=== PATIENT | female | born 1990 | race Caucasian/White ===

== ENCOUNTER 2017-11-18 23:35 | Observation (INO) | payer OTHER ==
[~2017-11-18] VITALS: Ht 167.6 cm; Wt 65.0 kg
[2017-11-18 23:51] VITALS: BP 137/79; PULSE 62; RESP 16; TEMP 97.6; O2SAT 100
[2017-11-19] VITALS (8 sets, daily range): BP systolic 101–115; BP diastolic 56–68; PULSE 48–71; RESP 14–18; TEMP 96.8–98.8; O2SAT 96–99
[2017-11-19] MEDS ORDERED: ONDANSETRON HCL 4 MG/2 ML VIAL IVP ONE (00:45)
[2017-11-19] MEDS ORDERED: MORPHINE SULFATE 8 MG/ML INJ IV PUSH ONE (00:45)
[2017-11-19] MEDS ORDERED: SODIUM CHLORIDE 0.9% FLUSH 10 ML FLUSH IV FLUSH PRN ×2 (00:45→04:30)
[2017-11-19 01:17] LABS: AUTOMATED NEUTROPHIL # 6.6 TH/MM3 (1.8-7.7); BASOPHIL % 0.4 % (0.0-2.0); EOSINOPHIL # 0.1 TH/MM3 (0-0.4); EOSINOPHIL % 0.9 % (0.0-4.0); HEMATOCRIT 41.3 % (35.0-46.0); HEMOGLOBIN 13.7 GM/DL (11.6-15.3); LYMPH % 19.1 % (9.0-44.0); LYMPHOCYTE # 1.7 TH/MM3 (1.0-4.8); MEAN CELL VOLUME 89.5 FL (80.0-100.0); MEAN CORPUSCULAR HEMOGLOBIN 29.7 PG (27.0-34.0); MEAN CORPUSCULAR HGB CONC 33.2 % (32.0-36.0); MEAN PLATELET VOLUME 8.7 FL (7.0-11.0); MONO % 5.5 % (0.0-8.0); MONOCYTE # 0.5 TH/MM3 (0-0.9); NEUT % 74.1 % (16.0-70.0); PLATELET COUNT 314 TH/MM3 (150-450); RED BLOOD COUNT 4.61 MIL/MM3 (4.00-5.30); RED CELL DISTRIBUTION WIDTH 13.7 % (11.6-17.2); WHITE BLOOD COUNT 8.9 TH/MM3 (4.0-11.0)
[2017-11-19 01:37] LABS: ALKALINE PHOSPHATASE 115 U/L (45-117); TOTAL BILIRUBIN ADULT 0.3 MG/DL (0.2-1.0); TOTAL PROTEIN 9.5 GM/DL (6.4-8.2)
[2017-11-19 01:39] LABS: ALBUMIN 3.6 GM/DL (3.4-5.0); ALT (GPT) 34 U/L (10-53); AST (GOT) 44 U/L (15-37); BICARBONATE 17.7 MEQ/L (21.0-32.0); BLOOD UREA NITROGEN 20 MG/DL (7-18); CALCIUM 8.4 MG/DL (8.5-10.1); CHLORIDE 118 MEQ/L (98-107); CREATININE 1.49 MG/DL (0.50-1.00); GLOMERULAR FILTRATION RATE 42 ML/MIN (>89); GLUCOSE,RANDOM 85 MG/DL (74-106); SODIUM (NA) 140 MEQ/L (136-145)
--- NOTE | 2017-11-19 01:53 | RADRPT ---
EXAM DATE/TIME: 11/19/2017 01:07 [facility] COMPARISON: No previous studies available for comparison. INDICATIONS : Bilateral edema. MEDICAL HISTORY : Bilateral pedal edema. SURGICAL HISTORY : None. ENCOUNTER: Initial ACUITY: 1 day PAIN SCORE: 2/10 LOCATION: Bilateral legs. TECHNIQUE: Venous ultrasound of the left and right leg was performed from the inguinal ligament to the proximal calf. Real-time, color Doppler and spectral tracing, compression and augmentation techniques were us ed. FINDINGS: RIGHT LEG: There is normal compressibility of the deep venous system from the inguinal region to the proximal ca lf. No echogenic clot is seen in the lumen of the common femoral, femoral, popliteal, and posterior tibial veins. There is a normal response of the venous system to proximal and distal augmentation an d respiration. LEFT LEG: There is normal compressibility of the deep venous system from the inguinal region to the proximal ca lf. No echogenic clot is seen in the lumen of the common femoral, femoral, popliteal, and posterior tibial veins. There is a normal response of the venous system to proximal and distal augmentation an d respiration. CONCLUSION: 1. No evidence of deep venous thrombosis. Momo Solis MD on November 19, 2017 at 1:51 Board Certified Radiologist. This report was verified electronically.
[2017-11-19 02:29] LABS: PROTHROMBIN TIME - PATIENT 10.2 SEC (9.8-11.6)
--- NOTE | 2017-11-19 03:13 | PD ---
HPI Chief Complaint: Edema Time Seen by Provider: 00:36 Travel History International Travel<30 days: No Contact w/Intl Traveler<30days: No Traveled to known affect area: No History of Present Illness HPI 27-year-old female arrives to the ER with complaints of sudden onset swelling in the bilateral lower extremities associated with rash. Duration is been about an hour and a half. Associated symptoms include back pain. She reports a history of kidney disease however is unsure of the specific diagnosis however believes it is related to hypokalemia. She has also had chronic kidney stones. No fever nausea or vomiting. No new or different medication lately. The patient is visiting from [place]. [facility] Past Medical History Medical History: Denies Significant Hx Diminished Hearing: No ?: Not LMP: 11/15/17 Past Surgical History Surgical History: No Previous Surgery Social History Alcohol Use: No Tobacco Use: No Substance Use: No Allergies-Medications (Allergen,Severity, Reaction): Coded Allergies: No Known Allergies (Unverified , 11/18/17) Review of Systems Except as stated in HPI: all other systems reviewed are Neg General / Constitutional: No: Fever, Chills Physical Exam Narrative GENERAL: 27-year-old female pleasant well-nourished well-developed Vital Signs Date Time Temp Pulse Resp B/P (MAP) Pulse Ox O2 Delivery O2 Flow Rate FiO2 11/18/17 23:51 97.6 62 16 137/79 (98) 100 SKIN: Warm and dry. HEAD: Atraumatic. Normocephalic. EYES: Pupils equal and round. No scleral icterus. No injection or drainage. ENT: No nasal bleeding or discharge. Mucous membranes pink and moist. NECK: Trachea midline. No JVD. CARDIOVASCULAR: Regular rate and rhythm. RESPIRATORY: No accessory muscle use. Clear to auscultation. Breath sounds equal bilaterally. GASTROINTESTINAL: Abdomen soft, non-tender, nondistended. Hepatic and splenic margins not palpable. MUSCULOSKELETAL: Blanching erythematous lesions about the bilateral lower extremities from the mid tib-fib distally with edema in the same distribution. 2+ dorsalis pedis bilaterally. NEUROLOGICAL: Awake and alert. No obvious cranial nerve deficits. Motor grossly within normal limits. Five out of 5 muscle strength in the arms and legs. Normal speech. PSYCHIATRIC: Appropriate mood and affect; insight and judgment normal. Data Data Last Documented VS Vital Signs Date Time Temp Pulse Resp B/P (MAP) Pulse Ox O2 Delivery O2 Flow Rate FiO2 11/18/17 23:51 97.6 62 16 137/79 (98) 100 Orders Orders Complete Blood Count With Diff (11/19/17 00:39) Comprehensive Metabolic Panel (11/19/17 00:39) Lactic Acid (11/19/17 00:39) Prothrombin Time / Inr (Pt) (11/19/17 00:39) Act Partial Throm Time (Ptt) (11/19/17 00:39) Urinalysis - C+S If Indicated (11/19/17 00:39) Iv Access Insert/Monitor (11/19/17 00:39) Ecg Monitoring (11/19/17 00:39) Oximetry (11/19/17 00:39) Ondansetron Inj (Zofran Inj) (11/19/17 00:45) Sodium Chloride 0.9% Flush (Ns Flush) (11/19/17 00:45) Morphine Inj (Morphine Inj) (11/19/17 00:45) Ed Urine Pregnancytest Poc (11/19/17 00:39) Us Leg Venous Doppler Bilat (11/19/17 ) Morphine Inj (Morphine Inj) (11/19/17 03:15) Ketorolac Inj (Toradol Inj) (11/19/17 03:15) Urine Culture (11/19/17 02:55) Ceftriaxone Inj (Rocephin Inj) (11/19/17 03:30) Admit Order (Ed Use Only) (11/19/17 ) Tanker Service Attendant / Telemetry JORGE L.Q8H (11/19/17 04:16) Diet Heart Healthy (11/19/17 Breakfast) Activity Oob With Assistance (11/19/17 04:16) Notify Dr: Other (11/19/17 04:16) Labs Laboratory Tests Test 11/19/17 01:00 11/19/17 01:45 11/19/17 02:55 White Blood Count 8.9 TH/MM3 Red Blood Count 4.61 MIL/MM3 Hemoglobin 13.7 GM/DL Hematocrit 41.3 % Mean Corpuscular Volume 89.5 FL Mean Corpuscular Hemoglobin 29.7 PG Mean Corpuscular Hemoglobin Concent 33.2 % Red Cell Distribution Width 13.7 % Platelet Count 314 TH/MM3 Mean Platelet Volume 8.7 FL Neutrophils (%) (Auto) 74.1 % Lymphocytes (%) (Auto) 19.1 % Monocytes (%) (Auto) 5.5 % Eosinophils (%) (Auto) 0.9 % Basophils (%) (Auto) 0.4 % Neutrophils # (Auto) 6.6 TH/MM3 Lymphocytes # (Auto) 1.7 TH/MM3 Monocytes # (Auto) 0.5 TH/MM3 Eosinophils # (Auto) 0.1 TH/MM3 Basophils # (Auto) 0.0 TH/MM3 CBC Comment DIFF FINAL Differential Comment Blood Urea Nitrogen 20 MG/DL Creatinine 1.49 MG/DL Random Glucose 85 MG/DL Total Protein 9.5 GM/DL Albumin 3.6 GM/DL Calcium Level 8.4 MG/DL Alkaline Phosphatase 115 U/L Aspartate Amino Transf (AST/SGOT) 44 U/L Alanine Aminotransferase (ALT/SGPT) 34 U/L Total Bilirubin 0.3 MG/DL Sodium Level 140 MEQ/L Potassium Level 4.2 MEQ/L Chloride Level 118 MEQ/L Carbon Dioxide Level 17.7 MEQ/L Anion Gap 4 MEQ/L Estimat Glomerular Filtration Rate 42 ML/MIN Lactic Acid Level 0.6 mmol/L Prothrombin Time 10.2 SEC Prothromb Time International Ratio 1.0 RATIO Activated Partial Thromboplast Time 24.5 SEC Urine Color LIGHT-YELLOW Urine Turbidity HAZY Urine pH 7.0 Urine Specific [place] 1.007 Urine Protein TRACE mg/dL Urine Glucose (UA) NEG mg/dL Urine Ketones NEG mg/dL Urine Occult Blood MOD Urine Nitrite NEG Urine Bilirubin NEG Urine Urobilinogen LESS THAN 2.0 MG/DL Urine Leukocyte Esterase LARGE Urine RBC 4 /hpf Urine WBC 32 /hpf Urine Squamous Epithelial Cells 7 /hpf Urine Bacteria MOD /hpf Urine Mucus FEW /lpf Microscopic Urinalysis Comment CULTURE INDICATED MDM Medical Decision Making Medical Screen Exam Complete: Yes Emergency Medical Condition: Yes Medical Record Reviewed: Yes Differential Diagnosis Hemolytic anemia, renal failure, DVT, infection Narrative Course CBC & BMP Diagram 11/19/17 01:00 Total Protein 9.5 H, Albumin 3.6, Calcium Level 8.4 L, Alkaline Phosphatase 115 , Aspartate Amino Transf (AST/SGOT) 44 H, Alanine Aminotransferase (ALT/SGPT) 34 , Total Bilirubin 0.3 LE Doppler: no DVT Last Impressions Lower Extremity Ultrasound 11/19/17 0000 Signed Impressions: Service Date/Time: Sunday, November 19, 2017 01:07 - CONCLUSION: 1. No evidence of deep venous thrombosis. Momo Solis MD Urinalysis shows UTI Antibiotics started, Rocephin. Patient will be admitted. There appears to be some increased erythema/petechia involving bilateral lower extremities since the patient's arrival. It is not blanching. d/w Dr king Diagnosis Primary Impression: Petechiae Additional Impressions: UTI (urinary tract infection) Qualified Codes: N39.0 - Urinary tract infection, site not specified Chronic renal insufficiency Qualified Codes: N18.9 - Chronic kidney disease, unspecified Edema Qualified Codes: R60.9 - Edema, unspecified Admitting Information Admitting Physician Requests: Admit Disposition: 01 DISCHARGE HOME Condition: Stable Sohan Geller MD Nov 19, 2017 03:13
[2017-11-19 03:15] LABS: BACTERIA, URINE MOD /hpf; BILIRUBIN, URINE NEG (NEG); BLOOD, URINE MOD (NEG); GLUCOSE,URINE NEG (NEG); KETONE, URINE NEG (NEG); MUCUS URINE FEW /lpf (OCC); NITRITE,URINE NEG (NEG); SQUAMOUS EPITHELIAL CELL URINE 7 /hpf (0-5); URINE COLOR LIGHT-YELLOW (YELLW/STRAW); URINE LEUKOCYTE ESTERASE LARGE (NEG)
[2017-11-19] MEDS ORDERED: MORPHINE SULFATE 4 MG/ML INJ IV PUSH ONE (03:15)
[2017-11-19] MEDS ORDERED: KETOROLAC TROMETHAMINE 30 MG/ML (IVP) VIAL IV PUSH ONE (03:15)
[2017-11-19] MEDS ORDERED: cefTRIAXone INJ 1,000 MG in SODIUM CHLORIDE 0.9% INJ 100 ML IV ONE (03:30)
[2017-11-19] MEDS ORDERED: BISACODYL 10 MG SUPP RECTAL PRN (04:30)
[2017-11-19] MEDS ORDERED: ACETAMINOPHEN/HYDROcodone 325 MG/5 MG TAB PO PRN (04:30)
[2017-11-19] MEDS ORDERED: LACTULOSE SYRUP 20 GM/30 ML CUP PO PRN (04:30)
[2017-11-19] MEDS ORDERED: ACETAMINOPHEN/HYDROcodone 325 MG/10 MG TAB PO PRN (04:30)
[2017-11-19] MEDS ORDERED: ACETAMINOPHEN 325 MG TAB PO PRN (04:30)
[2017-11-19] MEDS ORDERED: SENNOSIDES 8.6 MG TAB PO PRN (04:30)
[2017-11-19] MEDS ORDERED: ONDANSETRON HCL 4 MG/2 ML VIAL IVP PRN (04:30)
[2017-11-19] MEDS ORDERED: MAGNESIUM HYDROXIDE SUSP 30 ML CUP PO PRN (04:30)
--- NOTE | 2017-11-19 04:43 | HHI.HP ---
[facility] Primary Care Physician Admission Diagnosis Petechia, edema, chronic renal insufficiency, UTI Diagnoses: (1) Intractable pain Diagnosis: Principal (2) Edema Diagnosis: Principal (3) UTI (urinary tract infection) Diagnosis: Principal Travel History International Travel<30 Days: No Contact w/Intl Traveler <30 Da: No Traveled to Known Affected Are: No History of Present Illness This is a 27-year-old female with a PMH of Kidney Stones who presented to the ER w/ complaints of bilateral lower extremity swelling and rash starting earlier today. States she drove from [place] w/ family, they had stopped at a gas station on the way and she noticed pain/swelling to bilateral lower extremities. No previous h/o similar symptoms. Does state she follows w/ a [facility] in [place] for "kidney problems" which she thinks involves low potassium, but is not sure, does not know her diagnosis. Does tell me she is on K+ and Sodium Bicarb in addition to another medication, but cannot recall which one. Does not know baseline creatinine. Denies fever, chills, chest pain or SOB. Does note severe right sided back pain earlier today, now resolved. On arrival, BP 137/79, HR 62, O2 sat 100% RA, Afebrile. CBC unremarkable. BUN 20, creatinine 1.49, no previous labs for comparison. Chloride 118, CO2 17.7. Lactic Acid normal. Total protein 9.5, Albumin 3.6. UA positive UTI. LE Doppler with no evidence of DVT. S/p Rocephin IV in ER. Review of Systems Except as stated in HPI: all other systems reviewed are Neg ROS: 14 point review of systems otherwise negative. Past Family Social History Past Medical History PMH: Renal Stones, Chronic Kidney Disease (unknown which type) Past Surgical History PAST SURGICAL HISTORY: None Allergies: Coded Allergies: No Known Allergies (Unverified , 11/18/17) Family History PAST FAMILY HISTORY: Reviewed. No h/o DM or CAD Social History PAST SOCIAL HISTORY: Negative for alcohol, tobacco or drugs. Physical Exam Vital Signs Vital Signs Date Time Temp Pulse Resp B/P (MAP) Pulse Ox O2 Delivery O2 Flow Rate FiO2 11/18/17 23:51 97.6 62 16 137/79 (98) 100 Physical Exam PE: GENERAL: Very pleasant young white female in no acute distress. Grandmother and children at bedside. HEENT: PERRLA, EOMI. No scleral icterus or conjunctival pallor. No lid lag or facial droop. CARDIOVASCULAR: Regular rate and rhythm. No obvious murmurs to auscultation. No chest tenderness to palpation. RESPIRATORY: No obvious rhonchi or wheezing. Clear to auscultation. Breath sounds equal bilaterally. GASTROINTESTINAL: Abdomen soft, non-tender, nondistended. BS normal. MUSCULOSKELETAL: Extremities without clubbing. No obvious deformities. Bilateral lower extremity edema 1-2+, +non blanching rash. Pulses intact. NEUROLOGICAL: Awake, alert and oriented x4. No focal neurologic deficits. Moving both upper and lower extremities spontaneously. Laboratory Laboratory Tests Test 11/19/17 01:00 11/19/17 01:45 11/19/17 02:55 White Blood Count 8.9 Red Blood Count 4.61 Hemoglobin 13.7 Hematocrit 41.3 Mean Corpuscular Volume 89.5 Mean Corpuscular Hemoglobin 29.7 Mean Corpuscular Hemoglobin Concent 33.2 Red Cell Distribution Width 13.7 Platelet Count 314 Mean Platelet Volume 8.7 Neutrophils (%) (Auto) 74.1 Lymphocytes (%) (Auto) 19.1 Monocytes (%) (Auto) 5.5 Eosinophils (%) (Auto) 0.9 Basophils (%) (Auto) 0.4 Neutrophils # (Auto) 6.6 Lymphocytes # (Auto) 1.7 Monocytes # (Auto) 0.5 Eosinophils # (Auto) 0.1 Basophils # (Auto) 0.0 CBC Comment DIFF FINAL Differential Comment Blood Urea Nitrogen 20 Creatinine 1.49 Random Glucose 85 Total Protein 9.5 Albumin 3.6 Calcium Level 8.4 Alkaline Phosphatase 115 Aspartate Amino Transf (AST/SGOT) 44 Alanine Aminotransferase (ALT/SGPT) 34 Total Bilirubin 0.3 Sodium Level 140 Potassium Level 4.2 Chloride Level 118 Carbon Dioxide Level 17.7 Anion Gap 4 Estimat Glomerular Filtration Rate 42 Lactic Acid Level 0.6 Prothrombin Time 10.2 Prothromb Time International Ratio 1.0 Activated Partial Thromboplast Time 24.5 Urine Color LIGHT-YELLOW Urine Turbidity HAZY Urine pH 7.0 Urine Specific [place] 1.007 Urine Protein TRACE Urine Glucose (UA) NEG Urine Ketones NEG Urine Occult Blood MOD Urine Nitrite NEG Urine Bilirubin NEG Urine Urobilinogen LESS THAN 2.0 Urine Leukocyte Esterase LARGE Urine RBC 4 Urine WBC 32 Urine Squamous Epithelial Cells 7 Urine Bacteria MOD Urine Mucus FEW Microscopic Urinalysis Comment CULTURE INDICATED Date/Time Source Procedure Growth Status 11/19/17 02:55 Urine Clean Catch Urine Culture Pending Received Result Diagram: 11/19/179911/19/1799 Caprini VTE Risk Assessment Caprini VTE Risk Assessment: No/Low Risk (score <= 1) Caprini Risk Assessment Model Point Value = 1 Point Value = 2 Point Value = 3 Point Value = 5 Age 41-60 Minor surgery BMI > 25 kg/m2 Swollen legs Varicose veins or History of unexplained or recurrent spontaneous Oral contraceptives or hormone replacement Sepsis (< 1 month) Serious lung disease, including pneumonia (< 1 month) Abnormal pulmonary function Acute myocardial infarction Congestive heart failure (< 1 month) History of inflammatory bowel disease Medical patient at bed rest Age 61-74 Arthroscopic surgery Major open surgery (> 45 min) Laparoscopic surgery (> 45 min) Malignancy Confined to bed (> 72 hours) Immobilizing plaster cast Central venous access Age >= 75 History of VTE Family history of VTE Factor V Leiden Prothrombin [id number] Lupus anticoagulant Anticardiolipin antibodies Elevated serum homocysteine Heparin-induced thrombocytopenia Other congenital or acquired thrombophilia Stroke (< 1 month) Elective arthroplasty Hip, pelvis, or leg fracture Acute spinal cord injury (< 1 month) Prophylaxis Regimen Total Risk Factor Score Risk Level Prophylaxis Regimen 0-1 Low Early ambulation 2 Moderate Order ONE of the following: *Sequential Compression Device (SCD) *Heparin 5000 units SQ BID 3-4 Higher Order ONE of the following medications: *Heparin 5000 units SQ TID *Enoxaparin/Lovenox 40 mg SQ daily (WT < 150 kg, CrCl > 30 mL/min) *Enoxaparin/Lovenox 30 mg SQ daily (WT < 150 kg, CrCl > 10-29 mL/min) *Enoxaparin/Lovenox 30 mg SQ BID (WT < 150 kg, CrCl > 30 mL/min) AND/OR *Sequential Compression Device (SCD) 5 or more Highest Order ONE of the following medications: *Heparin 5000 units SQ TID (Preferred with Epidurals) *Enoxaparin/Lovenox 40 mg SQ daily (WT < 150 kg, CrCl > 30 mL/min) *Enoxaparin/Lovenox 30 mg SQ daily (WT < 150 kg, CrCl > 10-29 mL/min) *Enoxaparin/Lovenox 30 mg SQ BID (WT < 150 kg, CrCl > 30 mL/min) AND *Sequential Compression Device (SCD) Assessment and Plan Problem List: (1) Intractable pain ICD Code: R52 - Pain, unspecified (2) Edema ICD Code: R60.9 - Edema, unspecified Status: Acute (3) UTI (urinary tract infection) ICD Code: N39.0 - Urinary tract infection, site not specified Status: Acute Assessment and Plan A/P: 1. Edema: acute onset of bilateral lower extremity edema w/ non-blanching rash , no h/o similar symptoms. Denies recent medications, including Bactrim or any other antibiotics. Doppler LE w/ no acute DVT, images reviewed by me. Rash/ edema possibly related to PATRICE, creatinine elevated at 1.49, however baseline unknown. Does report h/o "kidney problems" but does not know diagnosis. Will check CT Abd/Pelvis to eval for possible stone/hydronephrosis in light of c/o right flank/back pain and UTI. Consult Nephrology for further eval/ recommendations. Monitor I/O. Check ESR/CRP for possible vasculitis. Avoid NSAIDs. No recent fever, chills, no leukocytosis, no headache/neck pain. 2. Intractable Pain: Will continue w/ analgesics/antiemetics as needed. 3. UTI: U/a w/ UTI, s/p Rocephin, follow up urine cultures, continue IV Rocephin. 4. DVT Prophylaxis: Mechanical contraindication secondary to lower extremity edema/rash 5. Social work for d/c planning as needed 6. Case discussed at length w/ ER physician, labs/records/imaging reviewed by me. Problem Qualifiers (1) Edema: Qualified Codes: R60.9 - Edema, unspecified (2) UTI (urinary tract infection): Qualified Codes: N39.0 - Urinary tract infection, site not specified Lisa Pickard MD Nov 19, 2017 04:43
[2017-11-19] MEDS: SODIUM CHLOR 0.9% 1000 ML INJ 1,000 ML IV SCH ×2 (05:11→14:41)
--- NOTE | 2017-11-19 05:24 | RADRPT ---
EXAM DATE/TIME: 11/19/2017 04:39 [facility] COMPARISON: No previous studies available for comparison. INDICATIONS : Abnormal ultrasound; hydronephrosis. ORAL CONTRAST: No oral contrast ingested. RADIATION DOSE: 6.64 CTDIvol (mGy) MEDICAL HISTORY : None SURGICAL HISTORY : None. ENCOUNTER: Initial ACUITY: 1 day PAIN SCALE: 6/10 LOCATION: abdomen TECHNIQUE: Volumetric scanning of the abdomen and pelvis was performed. Using automated exposure control and ad justment of the mA and/or kV according to patient size, radiation dose was kept as low as reasonably achievable to obtain optimal diagnostic quality images. DICOM format image data is available electro nically for review and comparison. FINDINGS: Examination of the lung bases demonstrates no abnormality. No pleural fluid is identified. No pulmona ry nodules are present. The liver and spleen are normal in size and no focal defects are identified. The gallbladder and pancreas are unremarkable. No intrahepatic or extrahepatic ductal dilatation is s een. The adrenal glands are unremarkable. There are 2 numerous to count stones at the cortical medull juan manuel junction bilaterally characteristic of nephrocalcinosis. The largest stones measure 6-7 mm. No ur eteral stones are identified. A 5 cm left adnexal cyst is present. No free fluid is identified. The bladder appears normal. No wall thickening or intraluminal masses are identified. No abnormally enlarged lymph nodes are identified. CONCLUSION: 1. Extensive nephrocalcinosis without ureteral obstruction. 2. 5 cm left adnexal cyst. Followup examination to insure clearing is recommended. Momo Solis MD on November 19, 2017 at 5:18 Board Certified Radiologist. This report was verified electronically.
[2017-11-19] MEDS: DOCUSATE SODIUM 50 MG/SENNA 8.6 MG TAB PO SCH ×2 (08:27→21:49)
[2017-11-19] MEDS: SODIUM CHLORIDE 0.9% FLUSH 10 ML FLUSH IV FLUSH SCH ×2 (08:27→21:00)
--- NOTE | 2017-11-19 11:01 | PD.CONS ---
HPI Service Nephrology Consult Requested By Reason for Consult CKD Primary Care Physician No Primary Care Physician History of Present Illness This is a pleasant 27 year old with history of kidney stones, lives in [place], and is visiting [facility]. Developed pain, and redness in the ankles, and legs and was admitted to the hospital. She sees a residential treatment specialist in [place], and has been placed on potassium citrate, and sodium bicarbonate. It is unclear if she has CKD, patient does not know her baseline renal function. US negative for DVT. She has been placed on antibiotic. Review of Systems Eyes: DENIES: Blurred vision, Diplopia Cardiovascular: DENIES: Chest pain, Palpitations Gastrointestinal: DENIES: Abdominal pain, Black stools, Bloody stools, Constipation, Diarrhea Musculoskeletal: DENIES: Joint pain, Muscle aches Integumentary: COMPLAINS OF: Rash Neurologic: DENIES: Headache, Seizures Psychiatric: DENIES: Confusion Past Family Social History Allergies: Coded Allergies: No Known Allergies (Unverified , 11/18/17) Past Medical History Possible CKD Kidney stones. Reported Medications Potassium citrate Sodium bicarbonate Active Ordered Medications Current Medications Medications (Trade) Dose Ordered Sig/Miguel Ángel Route Start Time Stop Time Status Last Admin Sodium Chloride 1,000 ml @ 100 mls/hr Q10H IV 11/19/17 04:21 11/19/17 05:11 (NS Flush) 2 ml UNSCH PRN IV FLUSH 11/19/17 04:30 (NS Flush) 2 ml BID IV FLUSH 11/19/17 09:00 11/19/17 08:27 (Zofran Inj) 4 mg Q6H PRN IVP 11/19/17 04:30 (Tylenol) 650 mg Q6H PRN PO 11/19/17 04:30 (Gay 5-325 Mg) 1 tab Q4H PRN PO 11/19/17 04:30 (Gay 10-325 Mg) 1 tab Q4H PRN PO 11/19/17 04:30 11/19/17 08:28 (Ivonne-Colace) 1 tab BID PO 11/19/17 09:00 11/19/17 08:27 (Milk Of Magnesia Liq) 30 ml Q12H PRN PO 11/19/17 04:30 (Senokot) 17.2 mg Q12H PRN PO 11/19/17 04:30 (Dulcolax Supp) 10 mg DAILY PRN RECTAL 11/19/17 04:30 (Lactulose Liq) 30 ml DAILY PRN PO 11/19/17 04:30 Ceftriaxone Sodium 1000 mg/ Sodium Chloride 100 ml @ 200 mls/hr Q24H IV 11/19/17 23:00 Family History Patient's uncle was on dialysis. Grandfather had renal cell cancer. Social History No tobacco, no ETOH Physical Exam Vital Signs Vital Signs Date Time Temp Pulse Resp B/P (MAP) Pulse Ox O2 Delivery O2 Flow Rate FiO2 11/19/17 08:08 98.8 67 16 104/59 (74) 99 11/19/17 05:20 71 11/19/17 05:03 97.6 53 16 105/56 (72) 97 11/18/17 23:51 97.6 62 16 137/79 (98) 100 Physical Exam GENERAL: awake, alert, SKIN: Warm and dry. HEAD: Normocephalic. EYES: No scleral icterus. No injection or drainage. NECK: Supple, trachea midline. No JVD or lymphadenopathy. CARDIOVASCULAR: Regular rate and rhythm without murmurs, gallops, or rubs. RESPIRATORY: Breath sounds equal bilaterally. No accessory muscle use. GASTROINTESTINAL: Abdomen soft, non-tender, nondistended. MUSCULOSKELETAL: No cyanosis, or edema. Skin: erythematous papular rash on the feet, ankles and lower legs. Some swelling of the ankles. BACK: Nontender without obvious deformity. No CVA tenderness. Laboratory Laboratory Tests Test 11/19/17 01:00 11/19/17 01:45 11/19/17 02:55 White Blood Count 8.9 Red Blood Count 4.61 Hemoglobin 13.7 Hematocrit 41.3 Mean Corpuscular Volume 89.5 Mean Corpuscular Hemoglobin 29.7 Mean Corpuscular Hemoglobin Concent 33.2 Red Cell Distribution Width 13.7 Platelet Count 314 Mean Platelet Volume 8.7 Neutrophils (%) (Auto) 74.1 Lymphocytes (%) (Auto) 19.1 Monocytes (%) (Auto) 5.5 Eosinophils (%) (Auto) 0.9 Basophils (%) (Auto) 0.4 Neutrophils # (Auto) 6.6 Lymphocytes # (Auto) 1.7 Monocytes # (Auto) 0.5 Eosinophils # (Auto) 0.1 Basophils # (Auto) 0.0 CBC Comment DIFF FINAL Differential Comment Erythrocyte Sedimentation Rate 11 Blood Urea Nitrogen 20 Creatinine 1.49 Random Glucose 85 Total Protein 9.5 Albumin 3.6 Calcium Level 8.4 Alkaline Phosphatase 115 Aspartate Amino Transf (AST/SGOT) 44 Alanine Aminotransferase (ALT/SGPT) 34 Total Bilirubin 0.3 Sodium Level 140 Potassium Level 4.2 Chloride Level 118 Carbon Dioxide Level 17.7 Anion Gap 4 Estimat Glomerular Filtration Rate 42 Lactic Acid Level 0.6 C-Reactive Protein LESS THAN 0.29 Human Chorionic Gonadotropin, Quant LESS THAN 1 Prothrombin Time 10.2 Prothromb Time International Ratio 1.0 Activated Partial Thromboplast Time 24.5 Urine Color LIGHT-YELLOW Urine Turbidity HAZY Urine pH 7.0 Urine Specific Harrold 1.007 Urine Protein TRACE Urine Glucose (UA) NEG Urine Ketones NEG Urine Occult Blood MOD Urine Nitrite NEG Urine Bilirubin NEG Urine Urobilinogen LESS THAN 2.0 Urine Leukocyte Esterase LARGE Urine RBC 4 Urine WBC 32 Urine Squamous Epithelial Cells 7 Urine Bacteria MOD Urine Mucus FEW Microscopic Urinalysis Comment CULTURE INDICATED Date/Time Source Procedure Growth Status 11/19/17 02:55 Urine Clean Catch Urine Culture Pending Received Result Diagram: 11/19/17 0100 11/19/17 0100 Assessment and Plan Problem List: (1) Chronic renal insufficiency ICD Codes: N18.9 - Chronic kidney disease, unspecified Status: Acute Plan: baseline renal function is not known. 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 I will obtain urine electrolytes to calculate urine anion gap: it will be positive in this condition. Underlying condition causing distal RTA is not known. Sjogren's syndrome is the most common cause in adults. Other autoimmune conditions have been associated as well. As far as skin rash is concerned, it is of unclear etiology. Cellulitis? Consider skin biopsy. I will obtain complement levels, CHLOE, RF. Obtain ANCA as well. Continue potassium citrate and Sodium bicarbonate. Avoid nephrotoxic agents. (2) Skin rash ICD Codes: R21 - Rash and other nonspecific skin eruption Plan: see above. (3) UTI (urinary tract infection) ICD Codes: N39.0 - Urinary tract infection, site not specified Status: Acute Plan: On antibiotic. Assessment and Plan Thanks for the consult. Problem Qualifiers (1) Chronic renal insufficiency: Qualified Codes: N18.9 - Chronic kidney disease, unspecified (2) UTI (urinary tract infection): Qualified Codes: N39.0 - Urinary tract infection, site not specified Neto Robert MD Nov 19, 2017 11:01
--- NOTE | 2017-11-19 12:14 | HHI.PR ---
Subjective Remarks Follow-up visit bilateral skin rash in the lower extremity, UTI, CKD?. Patient seen and examined today laying in bed. Reports she is not feeling better. C/O bilateral lower extremity pain, throbbing. States that due for seeing her urologist to clean out the stones she has in her kidneys. She also follows a improvement spec. She does not know her baseline creatinine. Denies fevers, chills , nausea, vomiting, diarrhea. Denies chest pain, shortness of breath or dyspnea , palpitations, headaches, dizziness. Denies hematuria, dysuria. Objective Vitals Vital Signs Date Time Temp Pulse Resp B/P (MAP) Pulse Ox O2 Delivery O2 Flow Rate FiO2 11/19/17 08:08 98.8 67 16 104/59 (74) 99 11/19/17 05:20 71 11/19/17 05:03 97.6 53 16 105/56 (72) 97 11/18/17 23:51 97.6 62 16 137/79 (98) 100 I/O 11/18/17 11/18/17 11/18/17 11/19/17 11/19/17 11/19/17 07:00 15:00 23:00 07:00 15:00 23:00 Intake Total 500 ml Balance 500 ml Intake Oral 500 ml # Voids 1 Result Diagram: 11/19/17 0100 11/19/17 0100 Imaging Last Impressions Lower Extremity Ultrasound 11/19/17 0000 Signed Impressions: Service Date/Time: Sunday, November 19, 2017 01:07 - CONCLUSION: 1. No evidence of deep venous thrombosis. Momo Solis MD Abdomen/Pelvis CT 11/19/17 0000 Signed Impressions: Service Date/Time: Sunday, November 19, 2017 04:39 - CONCLUSION: 1. Extensive nephrocalcinosis without ureteral obstruction. 2. 5 cm left adnexal cyst. Followup examination to insure clearing is recommended. Momo Solis MD Objective Remarks GENERAL: This is a well-nourished, well-developed patient, in no apparent distress. SKIN: Warm and dry. Bilateral lower extremity erythematous rash, no edema. HEENT: Normocephalic. Pupils equal round and reactive. Nose without bleeding. Airway patent. NECK: Trachea midline. CARDIOVASCULAR: Regular rate and rhythm without murmurs, gallops, or rubs. RESPIRATORY: Clear to auscultation. Breath sounds equal bilaterally. No wheezes , rales, or rhonchi. GASTROINTESTINAL: Abdomen soft, non-tender, nondistended. Bowel Sounds normoactive x4. MUSCULOSKELETAL: Extremities without clubbing, cyanosis, or edema. NEUROLOGICAL: Awake and alert. Oriented to time, place, person. No focal neuro deficit. Moves all extremities. Normal speech. A/P Problem List: (1) Intractable pain ICD Code: R52 - Pain, unspecified (2) Edema ICD Code: R60.9 - Edema, unspecified Status: Acute (3) UTI (urinary tract infection) ICD Code: N39.0 - Urinary tract infection, site not specified Status: Acute Assessment and Plan This is a 27-year-old female with a PMH of Kidney Stones who presented to the ER w/ complaints of bilateral lower extremity swelling and rash x1 day. Bilateral lower extremity rash, edema ?Vasculitis -Erythematous papular rash, bilateral lower extremity -Rash or edema possibly related to acute kidney injury, creatinine elevated at 1.49 unknown baseline. -ESR and CRP within normal -CT of the abdomen and pelvis showed extensive nephro calcinosis without ureteral obstruction. 5 cm left adnexal cyst. Follow-up examination to ensure clearing is recommended. -Bilateral lower extremity DVT negative -Consult nephrology for further evaluation recommendation. Check CHLOE, RF, ANCA. Acute kidney injury on chronic kidney disease? Unknown kidney stage, unknown baseline -Patient follows with improvement spec from [place] -Consult nephrology as above -Avoid nephrotoxins, Recommends obtaining urine electrolytes to calculate urine anion gap. Suspect possible distal RTA.Underlying condition causing distal RTA is not known. Sjogren's syndrome is the most common cause in adults. Other autoimmune conditions have been associated as well. Urinary tract infection -UA culture indicated, cultures pending. Follow results. -Continue ceftriaxone IV for now Discharge Planning Plan to DC home when cleared by nephrology. Problem Qualifiers (1) Edema: Qualified Codes: R60.9 - Edema, unspecified (2) UTI (urinary tract infection): Qualified Codes: N39.0 - Urinary tract infection, site not specified Vonda Salvador Nov 19, 2017 12:14
[2017-11-19 13:28] LABS: RHEUMATOID FACTOR SCREEN POSITIVE (NEGATIVE)
[2017-11-19 13:30] LABS: COMPLEMENT C4 8 MG/DL (10-40)
[2017-11-19] MEDS ORDERED: cefTRIAXone INJ 1,000 MG in SODIUM CHLORIDE 0.9% INJ 100 ML IV SCH (23:00)
[2017-11-20 00:13] VITALS: BP 109/53; PULSE 57; RESP 17; TEMP 97.9; O2SAT 99
[2017-11-20] MEDS: SODIUM CHLOR 0.9% 1000 ML INJ 1,000 ML IV SCH ×2 (00:21→09:57)
[2017-11-20 02:57] VITALS: BP 100/60; PULSE 57; RESP 18; TEMP 97.7; O2SAT 99
[2017-11-20 06:20] LABS: AUTOMATED NEUTROPHIL # 2.6 TH/MM3 (1.8-7.7); BASOPHIL % 0.7 % (0.0-2.0); EOSINOPHIL # 0.1 TH/MM3 (0-0.4); HEMATOCRIT 35.2 % (35.0-46.0); HEMOGLOBIN 11.5 GM/DL (11.6-15.3); LYMPH % 29.9 % (9.0-44.0); LYMPHOCYTE # 1.3 TH/MM3 (1.0-4.8); MEAN CELL VOLUME 91.1 FL (80.0-100.0); MEAN CORPUSCULAR HEMOGLOBIN 29.9 PG (27.0-34.0); MEAN CORPUSCULAR HGB CONC 32.8 % (32.0-36.0); MEAN PLATELET VOLUME 8.5 FL (7.0-11.0); MONO % 8.8 % (0.0-8.0); MONOCYTE # 0.4 TH/MM3 (0-0.9); NEUT % 58.6 % (16.0-70.0); PLATELET COUNT 209 TH/MM3 (150-450); RED BLOOD COUNT 3.86 MIL/MM3 (4.00-5.30); RED CELL DISTRIBUTION WIDTH 13.4 % (11.6-17.2); WHITE BLOOD COUNT 4.4 TH/MM3 (4.0-11.0)
[2017-11-20 06:26] LABS: ALBUMIN 2.9 GM/DL (3.4-5.0); ALT (GPT) 26 U/L (10-53); AST (GOT) 26 U/L (15-37); BICARBONATE 14.1 MEQ/L (21.0-32.0); BLOOD UREA NITROGEN 15 MG/DL (7-18); CALCIUM 7.9 MG/DL (8.5-10.1); CHLORIDE 119 MEQ/L (98-107); CREATININE 0.99 MG/DL (0.50-1.00); GLOMERULAR FILTRATION RATE 67 ML/MIN (>89); GLUCOSE,RANDOM 114 MG/DL (74-106); SODIUM (NA) 141 MEQ/L (136-145)
[2017-11-20 06:29] LABS: ALKALINE PHOSPHATASE 101 U/L (45-117); TOTAL BILIRUBIN ADULT 0.1 MG/DL (0.2-1.0); TOTAL PROTEIN 7.6 GM/DL (6.4-8.2)
[2017-11-20 08:00] VITALS: PULSE 45
[2017-11-20] MEDS: SODIUM CHLORIDE 0.9% FLUSH 10 ML FLUSH IV FLUSH SCH (09:00)
[2017-11-20 09:07] VITALS: BP 112/60; PULSE 56; RESP 16; TEMP 98.8; O2SAT 98
[2017-11-20] MEDS ORDERED: POTASSIUM CHLORIDE 10 MEQ CONTROLLED RELEASE TAB PO ONE (09:15)
[2017-11-20] MEDS: DOCUSATE SODIUM 50 MG/SENNA 8.6 MG TAB PO SCH (09:55)
--- NOTE | 2017-11-20 10:24 | HHI.PR ---
Subjective Remarks Follow-up visit bilateral skin rash in the lower extremity, UTI, PATRICE with CKD? Patient seen and examined today laying in bed. Reports she is doing better. Tired. Denies fevers, chills, nausea, vomiting, diarrhea. Denies chest pain, shortness of breath or dyspnea, palpitations, headaches, dizziness. Denies hematuria, dysuria. Objective Vitals Vital Signs Date Time Temp Pulse Resp B/P (MAP) Pulse Ox O2 Delivery O2 Flow Rate FiO2 11/20/17 09:07 98.8 56 16 112/60 (77) 98 11/20/17 02:57 97.7 57 18 100/60 (73) 99 11/20/17 00:13 97.9 57 17 109/53 (71) 99 11/19/17 20:22 97.7 55 18 107/68 (81) 99 11/19/17 18:52 52 11/19/17 16:41 98.6 58 14 101/57 (72) 97 11/19/17 12:24 96.8 70 16 115/66 (82) 96 I/O 11/19/17 11/19/17 11/19/17 11/20/17 11/20/17 11/20/17 07:00 15:00 23:00 07:00 15:00 23:00 Intake Total 500 ml 200 ml Balance 500 ml 200 ml Intake Oral 500 ml 200 ml # Voids 1 1 Result Diagram: 11/20/17 0538 11/20/17 0538 Imaging Last Impressions Lower Extremity Ultrasound 11/19/17 0000 Signed Impressions: Service Date/Time: Sunday, November 19, 2017 01:07 - CONCLUSION: 1. No evidence of deep venous thrombosis. Momo Solis MD Abdomen/Pelvis CT 11/19/17 0000 Signed Impressions: Service Date/Time: Sunday, November 19, 2017 04:39 - CONCLUSION: 1. Extensive nephrocalcinosis without ureteral obstruction. 2. 5 cm left adnexal cyst. Followup examination to insure clearing is recommended. Momo Solis MD Objective Remarks GENERAL: This is a well-nourished, well-developed patient, in no apparent distress. SKIN: Warm and dry. Bilateral lower extremity slight erythematous rash, no edema - improved HEENT: Normocephalic. Pupils equal round and reactive. Nose without bleeding. Airway patent. NECK: Trachea midline. CARDIOVASCULAR: Regular rate and rhythm without murmurs, gallops, or rubs. RESPIRATORY: Clear to auscultation. Breath sounds equal bilaterally. No wheezes , rales, or rhonchi. GASTROINTESTINAL: Abdomen soft, non-tender, nondistended. Bowel Sounds normoactive x4. MUSCULOSKELETAL: Extremities without clubbing, cyanosis, or edema. NEUROLOGICAL: Awake and alert. Oriented to time, place, person. No focal neuro deficit. Moves all extremities. Normal speech. A/P Problem List: (1) Intractable pain ICD Code: R52 - Pain, unspecified (2) Edema ICD Code: R60.9 - Edema, unspecified Status: Acute (3) UTI (urinary tract infection) ICD Code: N39.0 - Urinary tract infection, site not specified Status: Acute Assessment and Plan This is a 27-year-old female with a PMH of Kidney Stones who presented to the ER w/ complaints of bilateral lower extremity swelling and rash x1 day. Bilateral lower extremity rash, edema ?Vasculitis -Erythematous papular rash, bilateral lower extremity - improved -Rash or edema possibly related to acute kidney injury, creatinine elevated at 1.49 unknown baseline. -ESR and CRP within normal -CT of the abdomen and pelvis showed extensive nephro calcinosis without ureteral obstruction. 5 cm left adnexal cyst. Follow-up examination to ensure clearing is recommended. -Bilateral lower extremity DVT negative -Consult nephrology for further evaluation recommendation. Check CHLOE, RF, ANCA. -Rheumatoid Factor Scrn positive, titer 42.3, CHLOE ANCA Pending. Discussed extensively with patient she might need a follow-up with aircraft life support fitter to further studies or continue seeing her oven operator and follow the studies. Discussed the findings of a rheumatoid factor positive but not definitive diagnosis of rheumatoid or nonrheumatoid disorders. This can be worked up in the outpatient. -Spoke with Dr. Robert. He is agreeable to discharge the patient. He already spoke with the patient regarding further studies to be done for her. Recommends rheumatology follow-up aside from nephrology follow-up. Continue her potassium citrate 3 times a day and sodium bicarb 3 times a day. Acute kidney injury on chronic kidney disease? Unknown kidney stage, unknown baseline -Patient follows with oven operator from [place] -Consult nephrology as above -Avoid nephrotoxins, Recommends obtaining urine electrolytes to calculate urine anion gap. Suspect possible distal RTA.Underlying condition causing distal RTA is not known. Sjogren's syndrome is the most common cause in adults. Other autoimmune conditions have been associated as well. Urinary tract infection -UA culture indicated, cultures pending. Follow results. -Continue ceftriaxone IV for now DVT Prop early ambulatory Discharge Planning Plan to DC home today. Problem Qualifiers (1) Edema: Qualified Codes: R60.9 - Edema, unspecified (2) UTI (urinary tract infection): Qualified Codes: N39.0 - Urinary tract infection, site not specified Vonda Salvador [employer] Nov 20, 2017 10:24
--- NOTE | 2017-11-20 11:34 | HHI.DCPOC ---
Discharge Care Plan Diagnosis: (1) Acute kidney injury (2) Skin rash (3) UTI (urinary tract infection) (4) Chronic renal insufficiency Your Health Problems Are: Inflammation Swelling Leg Swelling Goals to Promote Your Health * To prevent worsening of your condition and complications * To maintain your health at the optimal level Directions to Meet Your Goals Take your medications as prescribed Follow your dietary instruction Follow activity as directed Keep your appointments as scheduled Take your immunizations and boosters as scheduled If your symptoms worsen call your PCP, if no PCP go to Urgent Care Center or Emergency Room Smoking is Dangerous to Your Health. Avoid second hand smoke Call the 24-hour hour crisis hotline for domestic abuse at Vonda Salvador [facility] Nov 20, 2017 11:34
--- NOTE | 2017-11-20 11:43 | HHI.DS ---
Discharge Summary Admission Date Nov 19, 2017 at 04:18 Discharge Date: Nov 20, 2017 Admitting Diagnosis [place], edema, chronic renal insufficiency, UTI (1) Intractable pain ICD Code: R52 - Pain, unspecified (2) Edema ICD Code: R60.9 - Edema, unspecified Status: Acute (3) UTI (urinary tract infection) ICD Code: N39.0 - Urinary tract infection, site not specified Status: Acute Procedures None Brief History - From Admission This is a 27-year-old female with a PMH of Kidney Stones who presented to the ER w/ complaints of bilateral lower extremity swelling and rash starting earlier today. States she drove from [place] w/ family, they had stopped at a gas station on the way and she noticed pain/swelling to bilateral lower extremities. No previous h/o similar symptoms. Does state she follows w/ a Glaze Maker in [place] for "kidney problems" which she thinks involves low potassium, but is not sure, does not know her diagnosis. Does tell me she is on K+ and Sodium Bicarb in addition to another medication, but cannot recall which one. Does not know baseline creatinine. Denies fever, chills, chest pain or SOB. Does note severe right sided back pain earlier today, now resolved. On arrival, BP 137/79, HR 62, O2 sat 100% RA, Afebrile. CBC unremarkable. BUN 20, creatinine 1.49, no previous labs for comparison. Chloride 118, CO2 17.7. Lactic Acid normal. Total protein 9.5, Albumin 3.6. UA positive UTI. LE Doppler with no evidence of DVT. S/p Rocephin IV in ER. CBC/BMP: 11/20/17 0538 11/20/17 0538 Significant Findings Laboratory Tests Test 11/19/17 01:00 11/19/17 01:45 11/19/17 02:55 11/19/17 11:51 Neutrophils (%) (Auto) 74.1 % (16.0-70.0) Blood Urea Nitrogen 20 MG/DL (7-18) Creatinine 1.49 MG/DL (0.50-1.00) Total Protein 9.5 GM/DL (6.4-8.2) Calcium Level 8.4 MG/DL (8.5-10.1) Aspartate Amino Transf (AST/SGOT) 44 U/L (15-37) Chloride Level 118 MEQ/L (98-107) Carbon Dioxide Level 17.7 MEQ/L (21.0-32.0) Anion Gap 4 MEQ/L (5-15) Estimat Glomerular Filtration Rate 42 ML/MIN (>89) Urine Turbidity HAZY (CLEAR) Urine Occult Blood MOD (NEG) Urine Leukocyte Esterase LARGE (NEG) Urine RBC 4 /hpf (0-3) Urine WBC 32 /hpf (0-5) Urine Bacteria MOD /hpf (NONE) Urine Mucus FEW /lpf (OCC) Rheumatoid Factor Screen POSITIVE (NEGATIVE) Rheumatoid Factor Titer 42.3 IU/ML (0.0-14.9) Complement C4 8 MG/DL (10-40) Test 11/20/17 05:38 11/20/17 09:56 Red Blood Count 3.86 MIL/MM3 (4.00-5.30) Hemoglobin 11.5 GM/DL (11.6-15.3) Monocytes (%) (Auto) 8.8 % (0.0-8.0) Random Glucose 114 MG/DL (74-106) Albumin 2.9 GM/DL (3.4-5.0) Calcium Level 7.9 MG/DL (8.5-10.1) Total Bilirubin 0.1 MG/DL (0.2-1.0) Potassium Level 3.0 MEQ/L (3.5-5.1) Chloride Level 119 MEQ/L (98-107) Carbon Dioxide Level 14.1 MEQ/L (21.0-32.0) Estimat Glomerular Filtration Rate 67 ML/MIN (>89) PE at Discharge GENERAL: This is a well-nourished, well-developed patient, in no apparent distress. SKIN: Warm and dry. Bilateral lower extremity slight erythematous rash, no edema - improved HEENT: Normocephalic. Pupils equal round and reactive. Nose without bleeding. Airway patent. NECK: Trachea midline. CARDIOVASCULAR: Regular rate and rhythm without murmurs, gallops, or rubs. RESPIRATORY: Clear to auscultation. Breath sounds equal bilaterally. No wheezes , rales, or rhonchi. GASTROINTESTINAL: Abdomen soft, non-tender, nondistended. Bowel Sounds normoactive x4. MUSCULOSKELETAL: Extremities without clubbing, cyanosis, or edema. NEUROLOGICAL: Awake and alert. Oriented to time, place, person. No focal neuro deficit. Moves all extremities. Normal speech. Pt update on day of discharge Follow-up visit bilateral skin rash in the lower extremity, UTI, PATRICE with CKD? Patient seen and examined today laying in bed. Reports she is doing better. Tired. Denies fevers, chills, nausea, vomiting, diarrhea. Denies chest pain, shortness of breath or dyspnea, palpitations, headaches, dizziness. Denies hematuria, dysuria. Hospital Course This is a 27-year-old female with a PMH of Kidney Stones who presented to the ER w/ complaints of bilateral lower extremity swelling and rash x1 day. Bilateral lower extremity rash, edema. Erythematous papular rash bilateral lower extremity has improved. This could possibly be related to acute kidney injury with her creatinine being elevated to 1.49. She has an unknown baseline. She would need biopsy for the skin rash that her abdomen definitive diagnosis. CT of the abdomen and pelvis showed extensive nephrocalcinosis without ureteral obstruction. 5 cm left adnexal cyst. Follow-up examination to ensure clearing is recommended. Bilateral lower extremity DVT negative. Patient was seen by lab assistant for further recommendation evaluation. Her CHLOE , RF, ANCA has been checked. Rheumatoid Factor Scrn positive, titer 42.3, CHLOE ANCA Pending. Cryoglobulin is also pending. Complement C3 106, complement C4 8. Hepatitis serology nonreactive hep B and hep C. Nephrology also recommend obtaining urine electrolytes to calculate urine anion gap. Suspect for possible distal RTA. Underlying condition causing distal RTA is not known. Shortage and syndrome is the most common cause in adults. Other autoimmune conditions have been associated as well. Initially, UA was abnormal and was sent for culture. Patient was given IV antibiotic ceftriaxone 1000 mg every 24 hours. Cultures came back 10-50,000 mixed gram-positive possible contaminants. Antibiotic was discontinued. Patient was also given IV fluids. She has acute kidney injury questionable chronic disease. This has improved. She needs to follow-up in outpatient possible rheumatology, and her lab assistant for continued testing. Discussed with patient that she can sign release of information so that her lab assistant can get all her records from her hospitalization. Patient has met maximal benefits of hospitalization. Clinically stable for discharge. Pt Condition on Discharge: Stable Discharge Disposition: Discharge Home Discharge Time: <= 30 minutes Discharge Instructions DIET: Follow Instructions for: As Tolerated, No Restrictions Activities you can perform: Regular-No Restrictions Activities to Avoid: Driving for 24 hrs Follow up Referrals: Appointment for Follow Up - 1 Week with Rheumatology Nephrology - 1 Week PCP Follow-up - 2-3 Days Continued Medications: Potassium Citrate-Citric Acid (Potassium Citrate-Citric Acid) 1,100-334 Mg/5 Ml Soln 15 ML PO TID, ML 0 Refills Sodium Bicarbonate (Sodium Bicarbonate) 325 Mg Tab 15 MG PO TID, #60 TAB 0 Refills Vonda Salvador Nov 20, 2017 11:43
[2017-11-20] MEDS ORDERED: POTASOL PO (11:49)
[2017-11-20] MEDS ORDERED: SODI325T PO (11:49)
--- NOTE | 2017-11-20 13:23 | HHI.NPPN ---
Subjective Interval History renal function has improved. Rash and swelling of the ankles have improved. Review of Systems General Constitutional: Fatigue Objective Data Data 11/20/17 11/21/17 19:00 07:00 # Voids 1 Vital Signs Date Time Temp Pulse Resp B/P (MAP) Pulse Ox O2 Delivery O2 Flow Rate FiO2 11/20/17 09:07 98.8 56 16 112/60 (77) 98 11/20/17 08:00 45 11/20/17 02:57 97.7 57 18 100/60 (73) 99 11/20/17 00:13 97.9 57 17 109/53 (71) 99 11/19/17 20:22 97.7 55 18 107/68 (81) 99 11/19/17 18:52 52 11/19/17 16:41 98.6 58 14 101/57 (72) 97 -: 11/20/17 0538 11/20/17 0538 Physical Exam General Appearance: Well Developed, No Acute Distress Neck Neck Exam: Neck Supple Pulmonary Resp Exam: Clear Bilaterally, Breath Sounds Equal Cardiology CV Exam: Regular, Normal Sinus Rhythm Gastrointestinal/Abdomen GI Exam: Soft, Non-Tender, Bowel Sounds Present Musculoskeletal MS Exam: Joints Intact Assessment/Plan Problem List: (1) Chronic renal insufficiency ICD Codes: N18.9 - Chronic kidney disease, unspecified Status: Acute Plan: Renal function has improved. Patient has distal RTA. Urine anion gap is positive. Underlying condition causing distal RTA is not known. Sjogren's syndrome is the most common cause in adults. Other autoimmune conditions have been associated as well. SLE is another cause. Can be seen with Zak's disease, hypercalcemia etc. As far as skin rash is concerned, it is of unclear etiology. Cellulitis? Consider skin biopsy. However it has improved. RF is positive, C4 is low. Cryoglobulinemia: however the rash has improved. She needs to follow up with a wood web weaving machine operator. Increase Potassium citrate to three times daily. (2) Skin rash ICD Codes: R21 - Rash and other nonspecific skin eruption Plan: see above. (3) UTI (urinary tract infection) ICD Codes: N39.0 - Urinary tract infection, site not specified Status: Acute Plan: On antibiotic. Plan Patient to be discharged today. Discussed with medicine service. Problem Qualifiers (1) Chronic renal insufficiency: Qualified Codes: N18.9 - Chronic kidney disease, unspecified (2) UTI (urinary tract infection): Qualified Codes: N39.0 - Urinary tract infection, site not specified Neto Robert MD Nov 20, 2017 13:23
[2017-11-23 11:26] LABS: ANA PATTERN SPECKLED
[2017-11-25 19:54] LABS: CRYOGLOBULIN QUALITATIVE NEGATIVE (NEGATIVE)
== END 2017-11-20 12:55 | disposition home or self-care (01) ==
LOC: NEPC 23:35 → NEDA 11-19 04:18 → INTOOBSV 11-19 04:18 → NEPFCDU 11-19 04:58
PROVIDERS: ADMIT Internal Medicine; ATTEND Internal Medicine
DX: N39.0 Urinary tract infection, site not specified (principal); R60.0 Localized edema; R23.3 Spontaneous ecchymoses; N18.9 Chronic kidney disease, unspecified; D89.1 Cryoglobulinemia; M32.9 Systemic lupus erythematosus, unspecified; E83.59 Other disorders of calcium metabolism; M35.00 Sjogren syndrome, unspecified; N17.9 Acute kidney failure, unspecified; N20.0 Calculus of kidney; Z87.442 Personal history of urinary calculi; Z80.51 Family history of malignant neoplasm of kidney
CPT/HCPCS: 74176; 80053; 81001; 82436; 82570; 82595; 83605; 84133; 84300; 84702; 84703; 85025; 85610; 85652; 85730; 86021; 86038; 86039; 86140; 86160; 86430; 86803; 87086; 87340; 93970; 96361; 96365; 96366; 96375; 96376; 99285; G0378; J0696; J1885; J2270; J2405; J7030